=== PATIENT | female | born 1975 | race Caucasian/White ===

== ENCOUNTER 2017-05-20 07:05 | Day surgery (SDC) | payer OTHER, SELFPAY ==
[2017-05-17 15:31] VITALS: BMI 29.2
[2017-05-20] VITALS (8 sets, daily range): BP systolic 111–128; BP diastolic 67–88; PULSE 64–86; RESP 18; TEMP 36.4–36.8; O2SAT 97–100
[2017-05-20 07:37] LABS: Urine Pregnancy, HCG Qual. Negative (Negative)
--- NOTE | 2017-05-20 07:46 | P.PN_ITS ---
[facility] Anesthesia Checklist - Patient Identification Patient Identification: Arm Band, Verbal (Name & ) - Structural Data Admitted From: Home Consent for Planned Operative Procedure(s) Verified: Yes Verified Documents: Surgical Consent, History and Physical - NPO Status Verified Time NPO: 00:00 - Chart Verification Results Verified: HCG - Additional verifications Patient : No Anesthesia Reactions: No - Airway Assessment C-Spine Mobility Assessed: Yes TMJ Mobility Assessed: Yes Dentition: Good Dentition - Neurological Assessment Level of Consciousness: Awake Hx Seizures: No Numbness or tingling in extremities: No - Anesthesia Plan Anesthesia Risk discussed: Yes Anesthesia Plan: Verified ASA Class: II Anesthesia Type: MAC [facility] Anesthesia HX I have reviewed the patient's past medical history: Yes Medical History: Reports:: Asthma (Exercise induced, allergy induced), Lung Disease (asthma) Denies:: Diabetes Mellitus Type 1, Diabetes Mellitus Type 2, Internal Pacemaker, Seizures Other Surgeries: No: Pacemaker
--- NOTE | 2017-05-20 08:10 | P.PCN_ITS ---
[facility] Procedure Note Procedure Note:: Upper Endoscopy Procedure Report: Esophagogastroduodenoscopy with cold biopsies and TTS balloon dilation Endoscopost: Jayjay Bernstein II, MD Referring Physician: Gerry Whittaker M.D. Date of Procedure: May 20, 2017 Equipment: Olympus GIF 180 standard upper endoscope Sedation: MAC sedation Indications: Mrs. Valdes is a 42-year-old female with a history of a Schatzki's ring. Patient did have esophageal dilation in December 2007 and again in February 2011. There was some appearance of corrugation and smaller caliber esophagus. Biopsies did confirm eosinophilic esophagitis. The patient has had recurrence of her dysphagia to solid foods. She reports no heartburn, reflux, indigestion or dyspepsia. Her RAST food allergy testing resulted in allergies to egg white, peanut and yeast. Procedure: Prior to the procedure, a history and physical exam was performed, and patient' s medications and allergies were reviewed. The risks, benefits and alternatives of the sedation and procedure were discussed with the patient. All questions were answered and informed consent was obtained. The patient was brought to the procedure room. Patient identification and proposed procedure were verified by the physician and the nurse. The patient was placed in a left lateral decubitus position and the scope was passed under direct vision. Throughout the procedure, the patient's blood pressure, pulse, and oxygen saturations were monitored continuously. The upper GI endoscopy was accomplished without difficulty. The patient tolerated the procedure well. Findings: The scope was passed directly into the upper esophagus and advanced to the third portion of the duodenum. The post bulbar duodenum and duodenal bulb were normal with normal mucosa and conniventes. The scope was withdrawn through a normal duodenal bulb and pylorus into the stomach. There was some very mild linear reactive antritis. The remainder of the antrum, body and fundus of the stomach were grossly normal. Upon retroflexion there was no hiatal hernia. 2 biopsies were taken in the antrum and along the lesser curvature for histology to rule out gastritis and/or H pylori. The scope was then withdrawn into the esophagus. There was a distal Schatzki's ring. There was also corrugation and minor linear striation suggestive of eosinophilic esophagitis. Cold biopsies were obtained ?4. The Schatzki's ring was dilated to 60 [place]/20 mm a TTS hydrostatic balloon. There was some minor submucosal breaking. The remainder of the esophageal mucosa was normal. Impression: 1. Schatzki's ring dilated to 20 mm 2. Probable eosinophilic esophagitis with small caliber esophagus/minor esophageal stenosis 3. Mild linear reactive antritis Plan: I would recommend omeprazole for 3 months. I will also recommend fluticasone spray for 3 months. This should significantly improve swallowing function. I would consider possible food allergy elimination. I will discuss the findings with the patient and family and follow up the biopsies.
== END 2017-05-20 08:56 | disposition home or self-care (01) ==
PROVIDERS: PCP Internal Medicine; Visit Provider Internal Medicine Gastroenterology
PROC: 0DJ08ZZ Inspection of Upper Intestinal Tract, Via Natural or Artificial Opening Endoscopic (ICD-10-PCS; CPT 43235; principal; 2017-05-20 08:00)
DX: K22.2 Esophageal obstruction (principal); K29.60 Other gastritis without bleeding
CPT/HCPCS: 43239; 43249; 36415; 81025; C1726